=== PATIENT | female | born 1975 | race American Indian/Alaskan Native ===

== ENCOUNTER 2017-08-18 16:38 | Emergency (ER) | payer SELFPAY ==
[2017-08-18 17:14] LABS: Basophils % (Auto) 0.6 % (0.0-1.8); Eosinophils % (Auto) 2.4 % (0.0-4.3); Hemoglobin 13.6 gm/dl (10.1-14.3); Mean Corpuscular HGB Conc 33 % (30-34); Mean Corpuscular Hemoglobin 32 pg (28-32); Mean Corpuscular Volume 95 fl (79-97); Platelet Count 314 K/mm3 (140-440); Red Blood Count 4.29 M/mm3 (3.65-5.03); Red Cell Distribution Width 13.6 % (13.2-15.2); White Blood Count 8.8 K/mm3 (4.5-11.0)
[2017-08-18 17:36] LABS: Anion Gap 16 mmol/L; BUN/Creatinine Ratio 25; Blood Urea Nitrogen 15 mg/dL (7-17); Calcium 9.1 mg/dL (8.4-10.2); Carbon Dioxide 24 mmol/L (22-30); Chloride 102.9 mmol/L (98-107); Glucose 95 mg/dL (65-100); Potassium 4.1 mmol/L (3.6-5.0); Sodium 139 mmol/L (137-145)
[2017-08-18 21:34] VITALS: BP 138/84
--- NOTE | 2017-08-19 09:39 | XRay Report ---
CHEST TWO VIEWS: 08/18/17 16:38:00 CLINICAL: Shortness of breath. COMPARISON: None. FINDINGS: Normal heart and pulmonary vasculature. The lungs are normally expanded and clear except for mild bibasal subsegmental atelectasis versus scars. Degenerative changes in the spine. IMPRESSION: Mild bibasal subsegmental atelectasis versus scars. No pneumonia or CHF.
== END 2017-08-18 23:23 | disposition left against medical advice (07) ==
LOC: ED 16:38
DX: R07.9 Chest pain, unspecified (principal); Z53.21 Procedure and treatment not carried out due to patient leaving prior to being seen by health care provider
CPT/HCPCS: 36415; 71020; 80048; 84484; 84702; 85025; 93005; 93010

== ENCOUNTER 2022-01-19 10:49 | Emergency (ER) | payer SELFPAY ==
[2022-01-19] MEDS ORDERED: METOCLOPRAMIDE 10 MG/2 ML INJ IV ONE (11:20)
[2022-01-19] MEDS ORDERED: FAMOTIDINE 20 MG/2 ML INJ IV ONE (11:20)
[2022-01-19] MEDS ORDERED: diphenhydrAMINE 50 MG/ML VIAL IV ONE (11:20)
[2022-01-19] MEDS ORDERED: SODIUM CHLORIDE 0.9% 1000 ML 1,000 ML IV ONE (11:20)
[2022-01-19] MEDS ORDERED: DICYCLOMINE 20 MG TAB PO ONE (11:20)
--- NOTE | 2022-01-19 11:38 | Emergency Department Report ---
ED Abdominal Pain HPI - General Chief Complaint: Abdominal Pain Stated Complaint: DIARRHEA/ABD PAIN/CHILLS Time Seen by Provider: 01/19/22 11:13 Source: patient Mode of arrival: Ambulatory Limitations: No Limitations - History of Present Illness Initial Comments: This is a 46-year-old female nontoxic, well nourished in appearance, no acute signs of distress presents to the ED with c/o of diarrhea, chills, nausea and vomiting and abdominal pain several days. Patient describes vomiting as food content and yellow gastric acid. Patient describes abdominal pain as cramping and aching with level of 8/10 diffuse. Patient denies chest pain, short of breath, fever, hemoptysis, blood in stool, headache, stiff neck, numbness or tingling. Patient denies any constipation. Denies any blood in stool. Patient denies any recent travels. Patient stated allergies to Toradol. Denies any significant past medical history. MD Complaint: abdominal pain -: days(s) Location: diffuse Radiation: none Migration to: no migration Severity: mild Severity scale (0 -10): 8 Quality: cramping, aching Improves With: nothing Worsens With: nothing Associated Symptoms: nausea, vomiting. denies: diarrhea, fever, chills, constipation, dysuria, hematemesis, hematochezia, melena, hematuria, anorexia, syncope - Related Data Previous Rx's Medication Instructions Recorded Last Taken Type Dicyclomine [Bentyl] 20 mg PO BID PRN #10 tablet 01/19/22 Unknown Rx Ondansetron [Zofran Odt] 4 mg PO Q8HR PRN #12 tab.rapdis 01/19/22 Unknown Rx Allergies Allergy/AdvReac Type Severity Reaction Status Date / Time tramadol Allergy Rash Verified 08/18/17 16:57 ED Review of Systems ROS: Stated complaint: DIARRHEA/ABD PAIN/CHILLS Other details as noted in HPI Comment: All other systems reviewed and negative Constitutional: denies: chills, fever Eyes: denies: eye pain, eye discharge, vision change ENT: denies: ear pain, throat pain Respiratory: denies: cough, shortness of breath, wheezing Cardiovascular: denies: chest pain, palpitations Endocrine: no symptoms reported Gastrointestinal: abdominal pain, nausea, vomiting. denies: diarrhea, constipation, hematemesis, melena, hematochezia Genitourinary: denies: urgency, dysuria, discharge Musculoskeletal: denies: back pain, joint swelling, arthralgia Skin: denies: rash, lesions Neurological: denies: headache, weakness, paresthesias Psychiatric: denies: anxiety, depression Hematological/Lymphatic: denies: easy bleeding, easy bruising ED Past Medical Hx - Past Medical History Hx Hypertension: Yes (boarderline) Hx Asthma: Yes - Surgical History Additional Surgical History: partial hysterectomy - Social History Smoking Status: Former Smoker Substance Use Type: Alcohol - Medications Home Medications: Home Medications Medication Instructions Recorded Confirmed Last Taken Type Dicyclomine [Bentyl] 20 mg PO BID PRN #10 tablet 01/19/22 Unknown Rx Ondansetron [Zofran Odt] 4 mg PO Q8HR PRN #12 tab.rapdis 01/19/22 Unknown Rx ED Physical Exam - General Limitations: No Limitations General appearance: alert, in no apparent distress - Head Head exam: Present: atraumatic, normocephalic - Eye Eye exam: Present: normal appearance - Neck Neck exam: Present: normal inspection, full ROM. Absent: lymphadenopathy - Respiratory Respiratory exam: Present: normal lung sounds bilaterally. Absent: respiratory distress, wheezes, rales, rhonchi, stridor, chest wall tenderness, accessory muscle use, decreased breath sounds, prolonged expiratory - Cardiovascular Cardiovascular Exam: Present: regular rate, normal rhythm, normal heart sounds. Absent: bradycardia, tachycardia, irregular rhythm, systolic murmur, diastolic murmur, rubs, gallop - GI/Abdominal GI/Abdominal exam: Present: soft, tenderness (diffuse), normal bowel sounds. Absent: distended, guarding, rebound, rigid, diminished bowel sounds - Extremities Exam Extremities exam: Present: normal inspection, full ROM, normal capillary refill. Absent: tenderness - Back Exam Back exam: Present: normal inspection, full ROM. Absent: tenderness, CVA tenderness (R), CVA tenderness (L), muscle spasm, paraspinal tenderness, vertebral tenderness, rash noted - Neurological Exam Neurological exam: Present: alert, oriented X3, normal gait - Psychiatric Psychiatric exam: Present: normal affect, normal mood - Skin Skin exam: Present: warm, dry, intact, normal color. Absent: rash ED Course Vital Signs 01/19/22 11:06 Temperature 98.3 F Pulse Rate 76 Respiratory 18 Rate Blood Pressure 138/81 O2 Sat by Pulse 98 Oximetry - Reevaluation(s) Reevaluation #1: 01/19/22 11:38 Patient is speaking in full sentences with no signs of distress noted. ED Medical Decision Making - Lab Data Result diagrams: 01/19/22 12:48 01/19/22 12:48 Lab Results 01/19/22 01/19/22 01/19/22 Range/Units 11:25 12:48 12:48 WBC 6.6 (4.5-11.0) K/mm3 RBC 4.42 (3.65-5.03) M/mm3 Hgb 13.9 (10.1-14.3) gm/dl Hct 42.0 (30.3-42.9) % MCV 95 (79-97) fl MCH 32 (28-32) pg MCHC 33 (30-34) % RDW 13.9 (13.2-15.2) % Plt Count 331 (140-440) K/mm3 Lymph % (Auto) 30.4 (13.4-35.0) % [place] % (Auto) 9.8 H (0.0-7.3) % Eos % (Auto) 4.1 (0.0-4.3) % Baso % (Auto) 0.2 (0.0-1.8) % Lymph # (Auto) 2.0 (1.2-5.4) K/mm3 [place] # (Auto) 0.6 (0.0-0.8) K/mm3 Eos # (Auto) 0.3 (0.0-0.4) K/mm3 Baso # (Auto) 0.0 (0.0-0.1) K/mm3 Seg Neutrophils % 55.5 (40.0-70.0) % Seg Neutrophils # 3.6 (1.8-7.7) K/mm3 Sodium 141 (137-145) mmol/L Potassium 4.1 (3.6-5.0) mmol/L Chloride 108.7 H (98-107) mmol/L Carbon Dioxide 21 L (22-30) mmol/L Anion Gap 15 mmol/L BUN 14 (7-17) mg/dL Creatinine 0.6 (0.6-1.2) mg/dL Estimated GFR > 60 ml/min BUN/Creatinine Ratio 23 % Glucose 78 (65-100) mg/dL Calcium 8.5 (8.4-10.2) mg/dL Total Bilirubin 0.30 (0.1-1.2) mg/dL AST 18 (5-40) units/L ALT 20 (7-56) units/L Alkaline Phosphatase 119 (35-129) units/L Total Protein 6.6 (6.3-8.2) g/dL Albumin 3.9 (3.9-5) g/dL Albumin/Globulin Ratio 1.4 % Lipase 28 (13-60) units/L HCG, Qual (Negative) Urine Color Yellow (Yellow) Urine Turbidity Clear (Clear) Urine pH 7.0 (5.0-7.0) Ur Specific [place] 1.023 (1.003-1.030) Urine Protein <15 mg/dl (Negative) mg/dL Urine Glucose (UA) Neg (Negative) mg/dL Urine Ketones Neg (Negative) mg/dL Urine Blood Neg (Negative) Urine Nitrite Neg (Negative) Urine Bilirubin Neg (Negative) Urine Urobilinogen 2.0 (<2.0) mg/dL Ur Leukocyte Esterase Neg (Negative) Urine WBC (Auto) 1.0 (0.0-6.0) /HPF Urine RBC (Auto) 3.0 (0.0-6.0) /HPF U Epithel Cells (Auto) 12.0 (0-13.0) /HPF Urine Mucus Few /HPF 01/19/22 Range/Units 12:48 WBC (4.5-11.0) K/mm3 RBC (3.65-5.03) M/mm3 Hgb (10.1-14.3) gm/dl Hct (30.3-42.9) % MCV (79-97) fl MCH (28-32) pg MCHC (30-34) % RDW (13.2-15.2) % Plt Count (140-440) K/mm3 Lymph % (Auto) (13.4-35.0) % [place] % (Auto) (0.0-7.3) % Eos % (Auto) (0.0-4.3) % Baso % (Auto) (0.0-1.8) % Lymph # (Auto) (1.2-5.4) K/mm3 [place] # (Auto) (0.0-0.8) K/mm3 Eos # (Auto) (0.0-0.4) K/mm3 Baso # (Auto) (0.0-0.1) K/mm3 Seg Neutrophils % (40.0-70.0) % Seg Neutrophils # (1.8-7.7) K/mm3 Sodium (137-145) mmol/L Potassium (3.6-5.0) mmol/L Chloride (98-107) mmol/L Carbon Dioxide (22-30) mmol/L Anion Gap mmol/L BUN (7-17) mg/dL Creatinine (0.6-1.2) mg/dL Estimated GFR ml/min BUN/Creatinine Ratio % Glucose (65-100) mg/dL Calcium (8.4-10.2) mg/dL Total Bilirubin (0.1-1.2) mg/dL AST (5-40) units/L ALT (7-56) units/L Alkaline Phosphatase (35-129) units/L Total Protein (6.3-8.2) g/dL Albumin (3.9-5) g/dL Albumin/Globulin Ratio % Lipase (13-60) units/L HCG, Qual Negative (Negative) Urine Color (Yellow) Urine Turbidity (Clear) Urine pH (5.0-7.0) Ur Specific [place] (1.003-1.030) Urine Protein (Negative) mg/dL Urine Glucose (UA) (Negative) mg/dL Urine Ketones (Negative) mg/dL Urine Blood (Negative) Urine Nitrite (Negative) Urine Bilirubin (Negative) Urine Urobilinogen (<2.0) mg/dL Ur Leukocyte Esterase (Negative) Urine WBC (Auto) (0.0-6.0) /HPF Urine RBC (Auto) (0.0-6.0) /HPF U Epithel Cells (Auto) (0-13.0) /HPF Urine Mucus /HPF - Radiology Data [facility] [address] [place] [address] Ultrasound Report Signed Patient: QUINTEN SHI MR#: [id number] 6 : 1975 Acct:[id number] Age/Sex: 46 / F ADM Date: 01/19/22 Loc: ED Attending Dr: Ordering Physician: EDIS MYRICK NP Date of Service: 01/19/22 Procedure(s): US abdomen limited Accession Number(s): [id number] cc: EDIS MYRICK NP LIMITED RUQ ABDOMINAL ULTRASOUND INDICATION / CLINICAL INFORMATION: abd pain. COMPARISON: No relevant prior imaging study available. FINDINGS: PANCREAS: Visualized portions show no significant abnormality. ABDOMINAL AORTA: No significant abnormality. IVC: No significant abnormality.. LIVER: The liver measures 14.6 cm in length. Mild increased echotexture. Normal hepatopedal blood flow in the main portal vein. GALLBLADDER: No significant abnormality. BILE DUCTS: No significant abnormality. Common bile duct measures 3 mm. RIGHT KIDNEY: No significant abnormality visualized. FREE FLUID: None. ADDITIONAL FINDINGS: None. IMPRESSION: 1. No acute sonographic abnormality of the right upper quadrant. 2. Mild hepatic steatosis Signer Name: Sergo Brady MD Signed: 01/19/2022 4:09 PM Workstation Name: [email or web address] Transcribed By: TL Dictated By: Sergo Brady MD Electronically Authenticated By: Sergo Brady MD Signed Date/Time: 01/19/221608 DD/ 07 TD/TT: [facility] [address] [place] [address] Cat Scan Report Signed Patient: QUINTEN SHI MR#: [id number] 6 : 1975 Acct:[id number] Age/Sex: 46 / F ADM Date: 01/19/22 Loc: ED Attending Dr: Ordering Physician: EDIS MYRICK NP Date of Service: 01/19/22 Procedure(s): CT abdomen pelvis w con Accession Number(s): [id number] cc: EDIS MYRICK NP CT ABDOMEN AND PELVIS WITH INTRAVENOUS CONTRAST INDICATION / CLINICAL INFORMATION: Abdominal pain with nausea, vomiting and diarrhea. TECHNIQUE: 100 cc Omnipaque [address] scans at this location are performed using CT dose reduction for ALARA by means of automated exposure control. COMPARISON: None available. FINDINGS: ABDOMEN: What appears to be the gallbladder is small and contracted. There is a possible fold or localized adenomyomatosis in the fundus. No calcified stones are seen. The bile ducts are normal in caliber. There are a few calcified granulomata in the spleen. The liver, pancreas, adrenal glands and kidneys demonstrate no significant abnormality. I see no evidence of obstruction, wall thickening or free air. No adenopathy is present. No acute vascular abnormality is seen. The lung bases are clear. PELVIS: There is a possible 1 cm filling defect in the base of the urinary bladder posteriorly at the midline. The distal ureters are normal. The uterus is not identified. There are couple of small follicular cyst in the left ovary, the largest of which measures 1.6 cm. No free fluid is seen. A normal appendix is present and there is no evidence of diverticulitis. I do not identify a hernia. No acute osseous abnormality is present. IMPRESSION: 1. No acute intra-abdominal disease is identified. 2. Slightly unusual appearance of what appears to be the gallbladder may be related to its collapsed state. A fold in the fundus versus localized adenomyomatosis should be considered. Gallbladder ultrasound may be helpful in further characterization. 3. Possible 1 cm filling defect in the base of the urinary bladder posteriorly near the midline. A polyp should be considered. Signer Name: Reza Moran MD Signed: 01/19/2022 2:51 PM Workstation Name: [id number] Transcribed By: RT Dictated By: Reza Moran MD Electronically Authenticated By: Reza Moran MD Signed Date/Time: 01/19/22 1451 DD/ 1443 TD/TT: - Medical Decision Making This is a 46-year-old female that presents with abdominal pain. Patient is stable and was examined by me. Labs obtained. UA obtained. CT and ultrasound of abdomen obtained and dictated by the radiologist. Patient is notified of the report with no questions noted by the patient. Vital signs are stable prior to discharge. Patient received medical treatment in the ED which patient stated symptoms has resovled and subsided. Was instructed note to operate any machinery due to possible drowsiness and stated someone will drive the patient home. A by mouth challenge has been obtained and patient tolerated well with no nausea vomiting. Patient was also instructed to Follow-up with a primary care doctor in 3-5 days or if symptoms worsen and continue return to emergency room as soon as possible. At time of discharge, the patient does not seem toxic or ill in appearance. No acute signs of distress noted. Patient agrees to discharge treatment plan of care. No further questions noted by the patient. Critical care attestation.: If time is entered above; I have spent that time in minutes in the direct care of this critically ill patient, excluding procedure time. 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 Prescriptions: Dicyclomine [Bentyl] 20 mg PO BID PRN #10 tablet PRN Reason: abdominal pain Ondansetron [Zofran Odt] 4 mg PO Q8HR PRN #12 tab.rapdis PRN Reason: Nausea Referrals: PRIMARY CAREMD [Primary Care Provider] - 3-5 Days EMILY POLANCO MD [Staff Physician] - 3-5 Days [facility] [Provider Group] - 3-5 Days Time of Disposition: 17:00
[2022-01-19 12:17] LABS: Bilirubin,Urine NEG (Negative); Blood,Urine NEG (Negative); Color,Urine Yellow (Yellow); Mucus,Urine FEW /HPF; Protein,Urine <15 mg/dL mg/dL (Negative)
[2022-01-19 13:10] LABS: Basophils % (Auto) 0.2 % (0.0-1.8); Eosinophils # (Auto) 0.3 K/mm3 (0.0-0.4); Eosinophils % (Auto) 4.1 % (0.0-4.3); Hemoglobin 13.9 gm/dl (10.1-14.3); Lymphocytes % (Auto) 30.4 % (13.4-35.0); Mean Corpuscular HGB Conc 33 % (30-34); Mean Corpuscular Volume 95 fl (79-97); Monocytes # (Auto) 0.6 K/mm3 (0.0-0.8); Monocytes % (Auto) 9.8 % (0.0-7.3); Platelet Count 331 K/mm3 (140-440); Red Blood Count 4.42 M/mm3 (3.65-5.03); Red Cell Distribution Width 13.9 % (13.2-15.2)
[2022-01-19 13:27] LABS: Alanine Aminotransferase 20 units/L (7-56); Albumin 3.9 g/dL (3.9-5); Blood Urea Nitrogen 14 mg/dL (7-17); Calcium 8.5 mg/dL (8.4-10.2); Hemolysis Index 14
[2022-01-19 13:45] LABS: BUN/Creatinine Ratio 23
--- NOTE | 2022-01-19 14:56 | Cat Scan Report ---
CT ABDOMEN AND PELVIS WITH INTRAVENOUS CONTRAST INDICATION / CLINICAL INFORMATION: Abdominal pain with nausea, vomiting and diarrhea. TECHNIQUE: 100 cc Omnipaque [address] scans at this location are performed using CT d ose reduction for MATEUS by means of automated exposure control. COMPARISON: None available. FINDINGS: ABDOMEN: What appears to be the gallbladder is small and contracted. There is a possible fold or loca lized adenomyomatosis in the fundus. No calcified stones are seen. The bile ducts are normal in calib er. There are a few calcified granulomata in the spleen. The liver, pancreas, adrenal glands and kidneys demonstrate no significant abnormality. I see no evidence of obstruction, wall thickening or free air . No adenopathy is present. No acute vascular abnormality is seen. The lung bases are clear. PELVIS: There is a possible 1 cm filling defect in the base of the urinary bladder posteriorly at the midline. The distal ureters are normal. The uterus is not identified. There are couple of small follicular cyst in the left ovary, the larges t of which measures 1.6 cm. No free fluid is seen. A normal appendix is present and there is no evide nce of diverticulitis. I do not identify a hernia. No acute osseous abnormality is present. IMPRESSION: 1. No acute intra-abdominal disease is identified. 2. Slightly unusual appearance of what appears to be the gallbladder may be related to its collapsed state. A fold in the fundus versus localized adenomyomatosis should be considered. Gallbladder ultras ound may be helpful in further characterization. 3. Possible 1 cm filling defect in the base of the urinary bladder posteriorly near the midline. A po lyp should be considered. Signer Name: Reza Moran MD Signed: 01/19/2022 2:51 PM Workstation Name: [id number]
--- NOTE | 2022-01-19 16:14 | Ultrasound Report ---
LIMITED RUQ ABDOMINAL ULTRASOUND INDICATION / CLINICAL INFORMATION: abd pain. COMPARISON: No relevant prior imaging study available. FINDINGS: PANCREAS: Visualized portions show no significant abnormality. ABDOMINAL AORTA: No significant abnormality. IVC: No significant abnormality.. LIVER: The liver measures 14.6 cm in length. Mild increased echotexture. Normal hepatopedal blood fl ow in the main portal vein. GALLBLADDER: No significant abnormality. BILE DUCTS: No significant abnormality. Common bile duct measures 3 mm. RIGHT KIDNEY: No significant abnormality visualized. FREE FLUID: None. ADDITIONAL FINDINGS: None. IMPRESSION: 1. No acute sonographic abnormality of the right upper quadrant. 2. Mild hepatic steatosis Signer Name: Sergo Brady MD Signed: 01/19/2022 4:09 PM Workstation Name: [email or web address] Access
[2022-01-19 17:34] VITALS: BP 124/78
== END 2022-01-19 17:34 | disposition home or self-care (01) ==
LOC: ED 10:49
DX: R10.9 Unspecified abdominal pain (principal); R11.2 Nausea with vomiting, unspecified; R19.7 Diarrhea, unspecified; J45.909 Unspecified asthma, uncomplicated; Z91.09 Other allergy status, other than to drugs and biological substances; Z98.890 Other specified postprocedural states; Z87.891 Personal history of nicotine dependence
CPT/HCPCS: 36415; 74177; 76705; 80053; 81001; 83690; 84703; 85025; 96361; 96374; 96375; 99284; J1200; J2765; J3490; J7030; Q9967; Q0162

== ENCOUNTER 2022-02-07 02:09 | Emergency (ER) | payer SELFPAY ==
[2022-02-07 03:57] VITALS: BP 139/89
[2022-02-07 04:28] LABS: Basophils # (Auto) 0.1 K/mm3 (0.0-0.1); Basophils % (Auto) 1.3 % (0.0-1.8); Eosinophils # (Auto) 0.2 K/mm3 (0.0-0.4); Eosinophils % (Auto) 3.5 % (0.0-4.3); Hemoglobin 13.8 gm/dl (10.1-14.3); Lymphocytes # (Auto) 1.8 K/mm3 (1.2-5.4); Lymphocytes % (Auto) 33.8 % (13.4-35.0); Mean Corpuscular HGB Conc 34 % (30-34); Mean Corpuscular Volume 94 fl (79-97); Monocytes # (Auto) 0.7 K/mm3 (0.0-0.8); Monocytes % (Auto) 12.7 % (0.0-7.3); Platelet Count 314 K/mm3 (140-440); Red Blood Count 4.37 M/mm3 (3.65-5.03); Red Cell Distribution Width 13.5 % (13.2-15.2)
--- NOTE | 2022-02-07 04:31 | XRay Report ---
XR abdomen 1V ap INDICATION / CLINICAL INFORMATION: Abdominal Pain. COMPARISON: None available. TECHNIQUE: One view supine AP abdomen. FINDINGS: TUBES / LINES: None. BOWEL GAS PATTERN: No significant abnormality. FREE AIR / EXTRALUMINAL GAS: None seen. ADDITIONAL FINDINGS: No significant additional findings. IMPRESSION: 1. No significant abnormality. Signer Name: Allan Guy II, MD Signed: 02/07/2022 4:27 AM Workstation Name: [id number]
[2022-02-07 04:39] LABS: Blood Urea Nitrogen 13 mg/dL (7-17); Calcium 8.8 mg/dL (8.4-10.2); Hemolysis Index 24
[2022-02-07 04:50] LABS: BUN/Creatinine Ratio 22
[2022-02-07] MEDS ORDERED: MAGNESIUM CITRATE 300 ML ORAL LIQD PO ONE (05:53)
--- NOTE | 2022-02-07 05:53 | Emergency Department Report ---
ED Abdominal Pain HPI - General Chief Complaint: Abdominal Pain Stated Complaint: ABD PAIN Time Seen by Provider: 02/07/22 05:48 Source: patient Mode of arrival: Ambulatory Limitations: No Limitations - History of Present Illness Initial Comments: 46-year-old black female presents to the emergency department for evaluation of 2-day history of abdominal pain. She states that she has inability to have a bowel movement the past few days which is different for her and 2 days ago she started to have some pain. She denies fever, dysuria, nausea, vomiting, and vaginal discharge. She states that she has not taken any medications for her symptoms. MD Complaint: abdominal pain -: Gradual, days(s) (2) Location: diffuse Radiation: none Migration to: no migration Severity scale (0 -10): 10 Quality: cramping, aching Associated Symptoms: constipation. denies: nausea, vomiting, diarrhea, fever, chills, dysuria, hematemesis, hematochezia, melena, hematuria, anorexia - Related Data Previous Rx's Medication Instructions Recorded Last Taken Type Dicyclomine [Bentyl] 20 mg PO BID PRN #10 tablet 01/19/22 Unknown Rx Ondansetron [Zofran Odt] 4 mg PO Q8HR PRN #12 tab.rapdis 01/19/22 Unknown Rx Polyethylene Glycol 3350 [Miralax] 17 gm PO DAILY 5 Days #1 bottle 02/07/22 Unknown Rx Allergies Allergy/AdvReac Type Severity Reaction Status Date / Time tramadol Allergy Rash Verified 08/18/17 16:57 ED Review of Systems ROS: Stated complaint: ABD PAIN Other details as noted in HPI Comment: All other systems reviewed and negative Constitutional: denies: chills, fever Respiratory: denies: shortness of breath Cardiovascular: denies: chest pain, palpitations Gastrointestinal: abdominal pain, constipation. denies: nausea, vomiting, diarrhea, hematemesis, melena, hematochezia Genitourinary: denies: urgency, dysuria, frequency, hematuria, discharge Musculoskeletal: denies: back pain Skin: denies: rash, lesions Neurological: denies: headache, weakness ED Past Medical Hx - Past Medical History Hx Hypertension: Yes (boarderline) Hx Asthma: Yes - Surgical History Additional Surgical History: partial hysterectomy - Social History Smoking Status: Former Smoker Substance Use Type: Alcohol - Medications Home Medications: Home Medications Medication Instructions Recorded Confirmed Last Taken Type Dicyclomine [Bentyl] 20 mg PO BID PRN #10 tablet 01/19/22 Unknown Rx Ondansetron [Zofran Odt] 4 mg PO Q8HR PRN #12 tab.rapdis 01/19/22 Unknown Rx Polyethylene Glycol 3350 [Miralax] 17 gm PO DAILY 5 Days #1 bottle 02/07/22 Unknown Rx ED Physical Exam - General Limitations: No Limitations ED Course Vital Signs 02/07/22 03:55 Temperature 98.0 F Pulse Rate 65 Respiratory 18 Rate Blood Pressure 139/89 [Right] O2 Sat by Pulse 99 Oximetry ED Medical Decision Making - Lab Data Result diagrams: 02/07/22 04:02 02/07/22 04:02 - Radiology Data Radiology results: report reviewed, image reviewed KUB: FINDINGS: TUBES / LINES: None. BOWEL GAS PATTERN: No significant abnormality. FREE AIR / EXTRALUMINAL GAS: None seen. ADDITIONAL FINDINGS: No significant additional findings. IMPRESSION: - Medical Decision Making 46-year-old black female presents to the emergency department for evaluation of 2-day history of abdominal pain. She states that she has inability to have a bowel movement the past few days which is different for her and 2 days ago she started to have some pain. She denies fever, dysuria, nausea, vomiting, and vaginal discharge. She states that she has not taken any medications for her symptoms. No gross abnormalities noted on exam, and x-ray concerning for constipation. Patient will be treated with one-time dose of mag citrate and given MiraLAX to take for the next week at home. She is advised to increase noncaffeinated fluid intake and fiber intake in diet and follow-up with her primary care provider if no improvement or worsening symptoms. She verbalized understanding daily. Plan of care. Critical care attestation.: If time is entered above; I have spent that time in minutes in the direct care of this critically ill patient, excluding procedure time. ED Disposition Clinical Impression: Constipation Qualifiers: Constipation type: unspecified constipation type Qualified Code(s): K59.00 - Constipation, unspecified Disposition: HOME / SELF CARE / HOMELESS Is pt being admited?: No Does the pt Need Aspirin: No Condition: Stable Instructions: High-Fiber Diet, Constipation, Adult, [id number], Abdominal Pain (ED) Additional Instructions: Take medications as prescribed. Increase noncaffeinated fluid intake and fiber in diet. Follow-up with primary care provider if no improvement or worsening symptoms. Return to the emergency department as needed. Prescriptions: Polyethylene Glycol 3350 [Miralax] 17 gm PO DAILY 5 Days #1 bottle Referrals: EMILY POLANCO MD [Staff Physician] - 3-5 Days Forms: Work/School Release Form(ED) Time of Disposition: 05:54
== END 2022-02-07 06:29 | disposition home or self-care (01) ==
LOC: ED 02:09
DX: K59.00 Constipation, unspecified (principal); I10 Essential (primary) hypertension; J45.909 Unspecified asthma, uncomplicated; Z87.891 Personal history of nicotine dependence; Z79.899 Other long term (current) drug therapy; Z91.09 Other allergy status, other than to drugs and biological substances
CPT/HCPCS: 36415; 74018; 80048; 85025; 99283